=== PATIENT | male | born 1955 | race Caucasian/White ===

== ENCOUNTER 2018-12-31 14:00 | Inpatient (IN) | payer OTHER ==
[~2018-12-31] VITALS: Ht 175.3 cm; Wt 73.3 kg
[2018-12-31 17:49] LABS: Basophils # (auto) 0 uL; Eosinophils # (auto) 0 uL; Hemoglobin 12.9 g/dL (13.5-17.5); Lymphocytes # (auto) 0.8 uL; Mean Corpuscular Hemoglobin 35.8 pg (28.0-32.0); Monocytes # (auto) 0.3 uL
[2018-12-31 17:51] LABS: Basophils % (auto) 0.9 % (0.0-2.0); Hematocrit 37.8 % (41.0-53.0); Lymphocytes % (auto) 21.2 % (10.0-50.0); Mean Corpuscular Hgb Conc. 34.2 g/dL (32.0-36.0); Mean Corpuscular Volume 104.6 fL (80.0-100.0); Monocytes % (auto) 7.5 % (0.0-12.0); Neutrophils # (auto) 2.5 uL; Neutrophils % (auto) 69.4 % (37.0-80.0); Nucleated Red Blood Cells % 0.2 %; Platelet Count (auto) 70 10^3/uL (140-450); Red Blood Cells 3.61 10^6/uL (4.5-5.90); Red Cell Distribution Width 14.6 % (11.8-14.3); White Blood Cell 3.6 10^3/uL (4.4-10.8)
[2018-12-31 17:56] LABS: Urine Bacteria NONE SEEN /hpf (None Seen); Urine Blood Negative /uL (Negative); Urine Hyaline Cast FEW /lpf (0 - 2); Urine Mucus FEW (None Seen); Urine Specific Gravity 1.013 (1.001-1.035); Urine WBC <1 /hpf (0 - 3)
[2018-12-31 17:59] LABS: Alcohol, Urine < 3.0 mg/dL (0-5); Amphetamine Screen, Urine NEGATIVE (NEGATIVE); Barbiturate Scree,Urine NEGATIVE (NEGATIVE); Benzodiazephine Screen, Urine POSITIVE (NEGATIVE); Cannabinoid Screen, Urine NEGATIVE (NEGATIVE); Cocaine Screen, Urine NEGATIVE (NEGATIVE); Opiate Scree,Urine NEGATIVE (NEGATIVE); Phencyclidine Screen, Urine NEGATIVE (NEGATIVE)
[2018-12-31 18:01] LABS: Albumin 3.5 g/dL (3.4-5.0); BUN/Creatinine Ratio 30.2; Calcium 8.3 mg/dL (8.5-10.1); Magnesium 2.3 mg/dL (1.6-2.6); Potassium 3.5 mmol/L (3.5-5.1)
[2018-12-31 18:03] LABS: Bilirubin, Total 1.2 mg/dL (0.2-1.0); Total Protein 6.4 g/dL (6.4-8.2)
[2018-12-31 18:04] LABS: Partial Thromboplastin Time 25.7 sec (23.78-33.04); Prothrombin Time 10.7 sec (9.27-12.13)
[2018-12-31] MEDS ORDERED: ACETAMINOPHEN 500 MG TAB PO PRN (23:45)
[2018-12-31] MEDS ORDERED: LORazepam 2MG/ML-1ML VIAL IV PRN (23:45)
[2018-12-31] MEDS ORDERED: ONDANSETRON HCL 4 MG/2 ML VIAL IV PRN (23:45)
[2019-01-01] MEDS ORDERED: LEVETIRACETAM INJ 1,000 MG in D5W 5% 100 ML IV ONE (00:30)
[2019-01-01] MEDS ORDERED: LEVETIRACETAM 500 MG/5ML INJ IV ONE (01:11)
[2019-01-01 08:19] LABS: Basophils # (auto) 0 uL; Eosinophils # (auto) 0.1 uL; Eosinophils % (auto) 2.1 % (0.0-7.0); Lymphocytes # (auto) 1.2 uL; Mean Corpuscular Hgb Conc. 34.5 g/dL (32.0-36.0); Monocytes # (auto) 0.3 uL; Monocytes % (auto) 8.2 % (0.0-12.0); Neutrophils # (auto) 2.2 uL; Nucleated Red Blood Cells % 0.1 %; Platelet Count (auto) 71 10^3/uL (140-450); White Blood Cell 3.8 10^3/uL (4.4-10.8)
[2019-01-01 08:21] LABS: Basophils % (auto) 0.6 % (0.0-2.0); Hemoglobin 13.4 g/dL (13.5-17.5); Lymphocytes % (auto) 31.4 % (10.0-50.0); Mean Corpuscular Hemoglobin 35.8 pg (28.0-32.0); Neutrophils % (auto) 57.7 % (37.0-80.0); Red Blood Cells 3.75 10^6/uL (4.5-5.90); Red Cell Distribution Width 14.6 % (11.8-14.3)
[2019-01-01 08:24] LABS: Calcium 8.7 mg/dL (8.5-10.1); Potassium 4.2 mmol/L (3.5-5.1)
[2019-01-01 08:25] LABS: BUN/Creatinine Ratio 24.3
[2019-01-01] MEDS: LEVETIRACETAM 500 MG TAB PO SCH ×2 (10:21→21:16)
[2019-01-01] MEDS: NICOTINE 14 MG/24HR TOPICAL PATCH TD SCH (10:22)
[2019-01-01] MEDS: FAMOTIDINE 20 MG TAB PO SCH (10:22)
[2019-01-01 11:47] LABS: Cholesterol 131 mg/dL (< 200); HDL Cholesterol 59 mg/dL (40-59); LDL Cholesterol 62 mg/dL (< 100); Triglycerides 86 mg/dL (< 150)
[2019-01-01] MEDS: MULTIPLE VITAMIN 10 ML, MAGNESIUM SULF SDV 50% 8 MEQ in SODIUM CHLORIDE 0.9% 1,000 ML IV SCH (12:33)
[2019-01-01 13:48] LABS: Free T4 (Free Thyroxine) 1.04 ng/dL (0.89-1.76)
[2019-01-01 13:49] LABS: Folate (Folic Acid) 13.41 ng/mL (5.38-24)
[2019-01-01 17:00] VITALS: BP 144/88
--- NOTE | 2019-01-01 17:00 | NUR ---
Med Surg admit from ER CHANTELLE MORENO admitted to Telemetry unit after report received. Patient oriented to ZELALEM FERNANDEZ RN primary RN, unit, room, bed, and unit policies regarding patient care and visiting hours. Patient weighed by bedscale and encouraged to call if they need something. All questions and concerns addressed, patient verbalized understanding.
--- NOTE | 2019-01-01 19:34 | NUR ---
Closing Note Patient is resting in bed. Patient has verbalized some issues with DVT and hypoglycemia that were not previously mentioned. Made front office manager RN aware. Will endorse care to the front office manager RN.
--- NOTE | 2019-01-01 19:51 | NUR ---
[facility] sent MRSA sent at this time.
[2019-01-01] MEDS ORDERED: TRAZ50TA2 PO (19:54)
[2019-01-01] MEDS ORDERED: LURA40TA PO (19:54)
--- NOTE | 2019-01-01 19:55 | NUR ---
Re: Home meds Patient states that he takes latuda and trazadone at home, however, is unsure of home dosage.
[2019-01-01 21:30] VITALS: BP 153/79
[2019-01-01] MEDS ORDERED: traZODone HCL 50 MG TAB PO SCH (22:00)
[2019-01-02] VITALS (7 sets, daily range): BP systolic 116–155; BP diastolic 63–92
[2019-01-02 06:53] LABS: Basophils # (auto) 0 uL; Eosinophils # (auto) 0.1 uL; Eosinophils % (auto) 2.7 % (0.0-7.0); Mean Corpuscular Hemoglobin 35.8 pg (28.0-32.0); Monocytes # (auto) 0.4 uL; Nucleated Red Blood Cells % 0.1 %; Red Blood Cells 4.15 10^6/uL (4.5-5.90); White Blood Cell 4.1 10^3/uL (4.4-10.8)
[2019-01-02 07:02] LABS: Basophils % (auto) 0.8 % (0.0-2.0); Hematocrit 43.8 % (41.0-53.0); Hemoglobin 14.8 g/dL (13.5-17.5); Lymphocytes # (auto) 1.1 uL; Lymphocytes % (auto) 27.4 % (10.0-50.0); Mean Corpuscular Hgb Conc. 33.9 g/dL (32.0-36.0); Mean Corpuscular Volume 105.5 fL (80.0-100.0); Monocytes % (auto) 8.9 % (0.0-12.0); Neutrophils # (auto) 2.5 uL; Neutrophils % (auto) 60.2 % (37.0-80.0); Platelet Count (auto) 81 10^3/uL (140-450); Red Cell Distribution Width 14.8 % (11.8-14.3)
[2019-01-02 07:04] LABS: Calcium 8.8 mg/dL (8.5-10.1); Potassium 3.9 mmol/L (3.5-5.1)
[2019-01-02 07:07] LABS: BUN/Creatinine Ratio 20.3; Total Protein 7.6 g/dL (6.4-8.2)
[2019-01-02] MEDS: LEVETIRACETAM 500 MG TAB PO SCH (10:19)
[2019-01-02] MEDS: FAMOTIDINE 20 MG TAB PO SCH (10:19)
[2019-01-02] MEDS: NICOTINE 14 MG/24HR TOPICAL PATCH TD SCH (10:20)
--- NOTE | 2019-01-02 14:49 | NUR ---
PER [facility] THEY WERE NOT NOTIFIED OF PATIENT'S ADMISSION. FACE SHEET FAXED TO [facility] AT [phone]. AT THIS TIME THEY WILL NOT GIVE AUTH FOR SNF UNTIL CLINICALS ARE RECEIVED AND REVIEWED. CLINICALS WILL BE FAXED TO [phone].
[2019-01-02] MEDS: MULTIPLE VITAMIN 10 ML, MAGNESIUM SULF SDV 50% 8 MEQ in SODIUM CHLORIDE 0.9% 1,000 ML IV SCH (14:51)
--- NOTE | 2019-01-02 15:22 | NUR ---
ORDER TO DISCHARGE PATIENT HOME ... PATIENT WILL NOT BE GOING TO SNF FOR REHAB.
--- NOTE | 2019-01-02 15:23 | NUR ---
DISCHARGE PATIENT WILL DISCHARGE HOME RATHER THAN TO A FACILITY PER PATIENT REQUEST AND CLEARED BY DR. BETANCUR. ELBERT WITH SUPERVISOR ADULT EDUCATION NOTIFIED, THIS RN TO PROCEED WITH DISCHARGE
--- NOTE | 2019-01-02 17:27 | NUR ---
DISCHARGE TRANSPORTATION PATIENTS FAMILY MEMBER WILL NOT BE ABLE TO BE HERE UNTIL ABOUT 1999, PT MADE AWARE, PT WILL WAIT FOR RIDE IN LOBBY, PT STATES THE BUS DOES NOT RUN THAT LATE TO HIS ADDRESS IN [place]
--- NOTE | 2019-01-02 20:19 | NUR ---
DISCHARGE PATIENT UNCLE AT BEDSIDE. DISCHARGE PAPERWORK SIGNED AND GIVEN TO PATIENT ALONG WITH WRITTEN PRESCRIPTION AND INSTRUCTIONS. PATIENT VERBALIZES UNDERSTANDING. PATIENT HAS NO COMPLAINTS OF PAIN OR ANY DISCOMFORT AND IN NO APPARENT CARDIAC OR PULMONARY DISTRESS. ALL BELONGINGS WITH PATIENT. IV ACCESS REMOVED WITH CATHETER TIP STILL INTACT. AND PRESSURE DRESSING APPLIED. PATIENT LEFT WITH STAFF JERMAN PENA VIA WHEELCHAIR @ 2016.
[2019-01-03] MEDS ORDERED: CYANOCOBALAMIN 500 MCG TAB PO SCH (10:00)
== END 2019-01-02 20:17 | disposition home or self-care (01) | DRG 775 ==
LOC: ER 14:00 → OVERFLOW 01-01 00:32 → WEST WING 01-01 16:59
PROVIDERS: ADMIT Nurse Practitioner Family; ATTEND Internal Medicine
DX: F10.239 Alcohol dependence with withdrawal, unspecified (principal); D61.818 Other pancytopenia; G40.409 Other generalized epilepsy and epileptic syndromes, not intractable, without status epilepticus; F31.9 Bipolar disorder, unspecified; D50.9 Iron deficiency anemia, unspecified; F17.210 Nicotine dependence, cigarettes, uncomplicated; F41.9 Anxiety disorder, unspecified; I10 Essential (primary) hypertension; W19.XXXA Unspecified fall, initial encounter; Z82.3 Family history of stroke; Z82.49 Family history of ischemic heart disease and other diseases of the circulatory system; Z79.899 Other long term (current) drug therapy; Z71.51 Drug abuse counseling and surveillance of drug abuser; Y93.89 Activity, other specified; Y92.89 Other specified places as the place of occurrence of the external cause; Y99.8 Other external cause status
CPT/HCPCS: 36415; 70450; 70551; 71045; 80048; 80053; 80061; 80307; 81001; 82607; 82746; 83036; 83735; 84439; 84443; 85025; 85379; 85610; 85730; 87081; 94761; 95819; 96365; 96367; G0378; J7060